=== PATIENT | female | born 1995 | race Caucasian/White ===

== ENCOUNTER 2021-07-04 06:29 | Emergency (ER) | payer SELFPAY ==
[~2021-07-04] VITALS: Ht 165.1 cm; Wt 56.7 kg
--- NOTE | 2021-07-04 06:30 | NUR ---
PT BIB [facility] FROM [facility] FOR OD ON COCAINE, GIVEN NARCAN ON FIELD, CAME IN WITH NONREBREATHER 15 L NOTED WITH 100% O2. PT A/O X2, RESPONSIVE TO VERBAL AND TACTILE STIMULI. BREATHING EVEN AND UNLABORED. DR. ELLSWORTH AT BEDSIDE, MSE IN PROGRESS.
--- NOTE | 2021-07-04 06:59 | NUR ---
XRAY AT BEDSIDE.
[2021-07-04] MEDS ORDERED: IV NORMAL SALINE 1000 ML BAG IV ONE ×3 (07:00→09:15)
[2021-07-04 07:02] LABS: HEMATOCRIT 36.9 % (31.2-41.9); MEAN CORPUSCULAR HEMOGLOBIN 32.7 uug (24.7-32.8); MEAN CORPUSCULAR VOLUME 97.6 fL (75.5-95.3); PLATELET COUNT (AUTO) 342 K/uL (179-408)
[2021-07-04 07:07] LABS: CARBON DIOXIDE 21 mmol/L (21-32); CHLORIDE 100 mmol/L (98-107); CREATININE 1.1 mg/dL (0.6-1.3); GLUCOSE 218 mg/dL (74-106); POTASSIUM 3.8 mmol/L (3.5-5.1); UREA NITROGEN, BLOOD 7 mg/dL (7-18)
[2021-07-04 07:12] LABS: ETHANOL 183 MG/DL (0-0)
[2021-07-04 07:17] LABS: ALANINE AMINOTRANSFERASE 26 U/L (14-59); ALKALINE PHOSPHATASE 63 U/L (50-136); ASPARTATE AMINOTRANSFERASE 26 U/L (15-37); BILIRUBIN,DIRECT < 0.1 mg/dL (0.0-0.2); BILIRUBIN,TOTAL 0.1 mg/dL (0.2-1.0); TOTAL PROTEIN, SERUM 8.6 g/dL (6.4-8.2)
[2021-07-04 07:19] LABS: ACETAMINOPHEN < 2.0 ug/mL (10-30)
[2021-07-04 07:31] LABS: ABG BASE EXCESS -7.4 mmol/L; ABG HCO3 17.3 mmol/L; ABG PCO2 32.3 mmHg (35.0-45.0); ABG PH 7.346 (7.350-7.450); ABG PO2 88.6 mmHg (75.0-100.0); ABG SITE LEFT BRACHIAL; ABG TOTAL HEMOGLOBIN 11.4 G/dL (12.0-16.0); COHb 2.1 % (0.5-1.5); MetHb 0.2 % (0.0-1.5); O2Hb 93.7 % (94.0-97.0); VENT MODE ROOM AIR
[2021-07-04 07:40] LABS: MAGNESIUM 2.4 mg/dL (1.8-2.4); PHOSPHOROUS 6.1 mg/dL (2.5-4.9)
[2021-07-04] MEDS ORDERED: SODIUM BICARBONATE 8.4% 50 MEQ/50 ML DISP.SYRIN IV ONE ×2 (07:45→08:12)
[2021-07-04] MEDS ORDERED: ONDANSETRON 4 MG/2 ML VIAL IV ONE (08:15)
[2021-07-04] MEDS ORDERED: ONDANSETRON 4 MG/2 ML VIAL ONE (08:20)
[2021-07-04] MEDS ORDERED: METOCLOPRAMIDE HCL 10 MG/2 ML VIAL IV ONE (09:45)
[2021-07-04] MEDS ORDERED: METOCLOPRAMIDE HCL 10 MG/2 ML VIAL ONE (09:51)
[2021-07-04] MEDS ORDERED: DEXTROSE 5% IM STA (10:54)
[2021-07-04] MEDS ORDERED: PROMETHAZINE HCL IM STA (10:54)
[2021-07-04] MEDS ORDERED: PROCHLORPERAZINE MALEATE 5 MG TABLET PO STA (10:56)
[2021-07-04] MEDS ORDERED: ONDANSETRON ODT 4 MG TAB.RAPDIS SL ONE (11:00)
[2021-07-04] MEDS ORDERED: ONDANSETRON ODT 4 MG TAB.RAPDIS ONE (11:02)
[2021-07-04] MEDS ORDERED: PROCHLORPERAZINE MALEATE 5 MG TABLET ONE ×2 (11:06)
--- NOTE | 2021-07-04 11:10 | NUR ---
PT WAS RE-EVALUATED BY DR ELLSWORTH. PT WAS D/C'd TO HOME. D/C INSTRUCTIONS GIVEN TO THE PT BY DR ELLSWORTH. NO S/S OF ACUTE DISTRESS AT THIS TIME.
[2021-07-04 11:13] VITALS: BP 111/62
== END 2021-07-04 11:14 | disposition home or self-care (01) ==
LOC: ER 06:33
DX: T51.0X1A Toxic effect of ethanol, accidental (unintentional), initial encounter (principal); T40.2X1A Poisoning by other opioids, accidental (unintentional), initial encounter; R41.82 Altered mental status, unspecified; F14.20 Cocaine dependence, uncomplicated; Y92.89 Other specified places as the place of occurrence of the external cause; R00.0 Tachycardia, unspecified; E87.2 Acidosis; E83.39 Other disorders of phosphorus metabolism; R73.9 Hyperglycemia, unspecified; Z72.0 Tobacco use; R06.82 Tachypnea, not elsewhere classified
CPT/HCPCS: 36600; 71045; 80048; 80076; 80299; 80307; 80320; 83735; 83880; 84100; 84484; 85025; 93005; 96361; 96374; 96375; 99291; J2405; J2550; J2765; J3490; J7060; J8499 ×2; 36415; 70030-TC; A4663; G0480; J7030; Q0162